=== PATIENT | male | born 2000 | race African-American/Black ===

== ENCOUNTER 2023-05-01 01:42 | Emergency (ER) | payer BC, OTHER ==
[~2023-05-01] VITALS: Ht 182.9 cm; Wt 106.8 kg
[2023-05-01] MEDS: PHENYLEPHRINE INJ 10 MG in SODIUM CHL 0.9% 19 ML IR ONE ×3 (02:45→05:00)
[2023-05-01] MEDS: PHENYLEPHRINE HCL 10 MG/ML VL ONE ×3 (02:50→04:54)
[2023-05-01] MEDS: MORPHINE SULFATE 4 MG/ML SYR/VIAL IM ONE (04:05)
[2023-05-01] MEDS: LIDOCAINE 1% HCL (LOCAL ANESTH.) INJ 20ML MDV ONE (05:04)
[2023-05-01] MEDS: LIDOCAINE 1% HCL (LOCAL ANESTH.) INJ 20ML MDV ID ONE (05:39)
[2023-05-01] MEDS ORDERED: [UNRECOGNIZED DRUG - CODE] PO (06:13)
[2023-05-01 06:23] VITALS: PULSE 65; RESP 16; O2SAT 98
[2023-05-01 06:26] VITALS: BP 138/79; PULSE 65; RESP 16
== END 2023-05-01 06:27 | disposition home or self-care (01) ==
LOC: EDSEX 01:42 → ER 01:42
DX: N48.30 Priapism, unspecified (principal)
CPT/HCPCS: 54220; 96372; 99284; J2001; J2270; J2371